=== PATIENT | female | born 1940 | race Caucasian/White ===

== ENCOUNTER 2016-06-08 13:56 | Emergency (ER) | payer OTHER ==
[2016-06-08 14:35] LABS: % IMMATURE GRANULYOCYTES 0.2 % (0.0-1.1); ABSOLUTE IMMATURE GRANULOCYTES 0.01 10^3/uL (0.00-0.10); ADD DIFF? NO; ADD MORPH? NO; ADD SCAN? NO; ATYPICAL LYMPHOCYTE FLAG 10 (0-99); FRAGMENT RBC FLAG 0 (0-99); HEMATOCRIT 43.8 % (38.0-47.0); HEMOGLOBIN 14.8 g/dL (12.6-16.3); LEFT SHIFT FLG 0 (0-99); LIPEMIA HEMOLYSIS FLAG 90 (0-99); MEAN CELL HEMOGLOBIN 28.6 pg (27.9-34.1); MEAN CELL HEMOGLOBIN CONCENTR. 33.8 g/dL (32.4-36.7); MEAN CELL VOLUME 84.7 fL (81.5-99.8); MEAN PLATELET VOLUME 10.9 fL (8.7-11.7); PLATELET CLUMPS FLAG 0 (0-99); PLATELET COUNT 183 10^3/uL (150-400); RED BLOOD CELL COUNT 5.17 10^6/uL (4.18-5.33); RED CELL DISTRIBUTION WIDTH 13.1 % (11.5-15.2)
[2016-06-08] MEDS ORDERED: DIAZEPAM 10 MG/2 ML SYR IVP ONE (14:41)
--- NOTE | 2016-06-08 14:45 | EDPHY ---
H & P Stated Complaint: FEVER CHILLS, N/V Time Seen by Provider: 06/08/16 13:58 HPI/ROS: CHIEF COMPLAINT: Dizzy, vomiting HISTORY OF PRESENT ILLNESS: This is a 76-year-old female with a history of hypertension and reactive airways in the setting of respiratory infections. She has been ill over the last for 5 days. The illness began with myalgias and general malaise. She spent an entire day in bed last week (four days ago) and felt somewhat better, as if she was getting a cold. She had runny nose and cold symptoms since then. Last night however she developed dizziness which she describes as spinning. She has had gait instability and vomiting with positional changes. She has had some similar episodes over the last 2 weeks but they were short lived and resolved spontaneously. She has a very mild headache. She denies earache or change in hearing. She had fever for a day or so last week but does not believe she has had fever since. She does not have sore throat. She has a mild cough and continues with mild runny nose. She does not feel short of breath. She has not had chest pain. REVIEW OF SYSTEMS: A ten point review of systems was performed and is negative with the exception of the items mentioned in the HPI. Source: Patient, Family Exam Limitations: No limitations - Personal History Current Tetanus Diphtheria and Acellular Pertussis (TDAP): Unsure - Medical/Surgical History Other PMH: HTN,ASTHMA precipitated by respiratory infections and cold weather, ARTHRITIS - Social History Smoking Status: Never smoked Drug Use: None Additional Social History: She is . She and her live independently in their own home. She does not use tobacco products. - Physical Exam Exam: General Appearance: Alert. Vital signs reviewed. Pulse ox 86 on room air. Reluctant to turn her head because it brings on dizziness. Eyes: Pupils equal and round, no conjunctival injection, no discharge. Anicteric. ENT, Mouth: Mucous membranes are moist, no oropharyngeal erythema or edema. EACs and tympanic membranes normal bilaterally. Neck: No lymphadenopathy, supple. No meningeal signs. Respiratory: Lungs are clear to auscultation; no wheezes, rales, or rhonchi. Cardiovascular: Regular rate and rhythm; no murmur, rub, or gallop. Gastrointestinal: Abdomen is soft and nontender, no masses or organomegaly, bowel sounds normal. Skin: Warm and dry, no rashes on exposed skin, normal color. Back: Nontender to palpation over the thoracolumbar spine. No CVAT. Extremities: No lower extremity edema, no calf tenderness or swelling. Neurological: Alert and oriented. Moving all four extremities easily and equally. Cranial nerves II through XII are examined and are intact (visual acuity not tested). No nystagmus. Strength is 5 over 5 bilaterally with testing of all major motor groups. Sensation is intact to light touch over all 4 extremities. [id number] is performed accurately. Psychiatric: Normal affect. Constitutional: Initial Vital Signs Temperature (C) 37.0 C 06/08/16 13:58 Heart Rate 71 06/08/16 13:58 Respiratory Rate 16 06/08/16 13:58 Blood Pressure 144/78 H 06/08/16 13:58 O2 Sat (%) 86 L 06/08/16 13:58 O2 Delivery Mode Room Air O2 (L/minute) 3 Allergies/Adverse Reactions: No Known Allergies Allergy (Unverified 06/08/16 14:16) Home Medications: Medication Instructions Recorded Albuterol 06/08/16 Glucosamine 06/08/16 Hydrochlorothiazide 06/08/16 Losartan Potassium 06/08/16 Meclizine HCl [Meclizine HCl 25 mg 25 mg PO Q8 PRN #10 tab 06/08/16 (RX,OTC)] Mucinex 06/08/16 Singulair 06/08/16 Transderm-Scop 06/08/16 Medical Decision Making - Diagnostics Imaging: Two-view chest x-ray reviewed by me in PACs. CT scan of the head without contrast reviewed by me. ED Course/Re-evaluation: History and physical Sports a diagnosis of vertigo, likely benign positional vertigo. She is given a dose of IV Valium in the emergency department. Head CT obtained. Head CT normal. No evidence of ischemia or bleed. Recent URI/viral illness. CXR does not show pneumonia. She has pulse ox of 86 % on arrival, but this improved on its own and at DC she had nl pulse ox of 92%. After head Ct she tried to ambulate but remained off balance, with nausea (no vomiting). She was given meclizine orally, slept a bit, and felt much better upon awakening. A second attempt at ambulation was successful; she was able to walk to the bathroom without difficulty. She was initially hypertensive, but this improved. She has a history of HTN. I believe that she has vertigo, likely precipitated by recent viral illness. She is being discharged home with RX for meclizine. We reviewed the danger signs that should prompt her to return. Differential Diagnosis: I considered a ddx that includes but is not limited to stroke (ischemic or hemorrhagic), intracranial infection, benign positional vertigo, labyrinthitis, acoustic neuroma, and Meniere's. - Data Points Laboratory Results: Laboratory Results 06/08/16 14:10 06/08/16 14:10 Medications Given: Discontinued Medications Diazepam (Valium Injection) 2.5 mg IVP EDNOW ONE Stop: 06/08/16 14:42 Last Admin: 06/08/16 14:58 Dose: 2.5 mg Meclizine HCl (Meclizine Hcl) 12.5 mg PO EDNOW ONE Stop: 06/08/16 15:56 Last Admin: 06/08/16 15:59 Dose: 12.5 mg Departure - Departure Disposition: Home, Routine, Self-Care Clinical Impression: Vertigo, Upper respiratory infection, viral Condition: Good Instructions: Vertigo (ED), Upper Respiratory Infection (ED), Benign Paroxysmal Positional Vertigo (ED) Additional Instructions: Get lots of rest. Use the Meclizine as prescribed if you become dizzy/spinning again. If you develop fever, severe persistent headache, confusion, new numbness or weakness, any new or concerning symptoms please be re-evaluated. Follow up with Dr. Zhang. Call his office at the beginning of the week and let them know your in the emergency department. I would like you to be rechecked at the beginning of the week. Referrals: Patient,NotPresent [Unknown] - As per Instructions TAMARA ZHANG [Primary Care Provider] - As per Instructions Prescriptions: Meclizine HCl [Meclizine HCl 25 mg (RX,OTC)] 25 mg PO Q8 PRN #10 tab PRN Reason: vertigo, dizzy
[2016-06-08 14:52] LABS: ANION GAP 10 mEq/L (8-16); CALCIUM 9.2 mg/dL (8.5-10.4); CARBON DIOXIDE 24 mEq/l (22-31); CHLORIDE 97 mEq/L (97-110); CREATININE 0.6 mg/dL (0.6-1.0); GLOMERULAR FILTRATION RATE > 60; GLUCOSE 113 mg/dL (70-100); POTASSIUM 3.3 mEq/L (3.5-5.2); SODIUM 131 mEq/L (134-144)
[2016-06-08] MEDS ORDERED: MECLIZINE HCL 25 MG TAB PO ONE (15:55)
[2016-06-08 17:28] VITALS: BP 116/68; PULSE 78; RESP 18; TEMP 98.4; O2SAT 92
== END 2016-06-08 17:27 | disposition home or self-care (01) ==
LOC: EDUNIT#
DX: R42 Dizziness and giddiness (principal); J06.9 Acute upper respiratory infection, unspecified; I10 Essential (primary) hypertension; J45.909 Unspecified asthma, uncomplicated
CPT/HCPCS: 96374

== ENCOUNTER → 2018-08-25 | Outpatient (CLI) | payer OTHER | LOC: FIMAGING 08:42 ==